=== PATIENT | female | born 1965 | race Caucasian/White ===

== ENCOUNTER → 2019-10-23 | Outpatient (REF) | payer OTHER ==
[2019-10-23 16:59] LABS: MALB URINE SIEMENS 26.7 MG/L; MAU/CREAT RATIO 21.3 MCG/MG (0.0-30.0)
== END ==
LOC: M LAB REF 15:15
PROVIDERS: ATTEND Nurse Practitioner Family
DX: E11.65 Type 2 diabetes mellitus with hyperglycemia (principal)